=== PATIENT | male | born 1995 | race Caucasian/White ===

== ENCOUNTER 2016-10-01 10:27 | Emergency (ER) | payer OTHER ==
[2016-10-01 10:43] VITALS: BP 142/97
[2016-10-01] MEDS ORDERED: Ondansetron INJ* 2 MG/ML VIAL IM ONE (11:05)
--- NOTE | 2016-10-01 11:08 | UC ---
Abdominal Pain Male HPI - History of Current Complaint Chief Complaint: UCGI Stated Complaint: VOMITING BLOOD/DIARRHEA Time Seen by Provider: 10/01/16 11:01 Hx Obtained From: Patient Onset/Duration: Sudden Onset - at 0845 with diarrhea then vomiting x 3 or 4. Some streaks of blood after a really hard episode., Lasting Hours - 2, Still Present Severity Initially: Severe Severity Currently: Severe Location: Other - at the throat from the vomiting Radiates: No Character: Sharp Aggravating Factor(s):: Movement - just swollowing. Alleviating Factor(s): Nothing Associated Signs And Symptoms: Positive: Vomiting, Diarrhea - Allergies/Home Medications Allergies/Adverse Reactions: Allergies Allergy/AdvReac Type Severity Reaction Status Date / Time No Known Allergies Allergy Verified 10/01/16 10:44 PMH/Surg Hx/FS Hx/Imm Hx Previously Healthy: Yes Cardiovascular History Of: Denies: Hypertension Respiratory History Of: Denies: Asthma - Surgical History Surgical History: None - Family History Known Family History: Negative: Cardiac Disease, Hypertension, Diabetes - Social History Occupation: Unemployed Lives: Alone - with Girlfriend Alcohol Use: Occasionally Alcohol Amount: less than once a month Substance Use Type: None Smoking Status (MU): Never Smoked Tobacco - Immunization History Most Recent Tetanus Shot: unknown Review of Systems Constitutional: Chills Gastrointestinal: Vomiting, Diarrhea All Other Systems Reviewed And Are Negative: Yes Physical Exam Triage Information Reviewed: Yes Appearance: No Pain Distress, Ill-Appearing, Obese Vital Signs: Initial Vital Signs Temp 98.8 F 10/01/16 10:39 Pulse 113 10/01/16 10:39 Resp 16 10/01/16 10:39 BP 142/97 10/01/16 10:39 Pulse Ox 95 10/01/16 10:39 Vital Signs Reviewed: Yes Eyes: Positive: Conjunctiva Clear ENT: Positive: Pharynx normal - moist mucus membranes., TMs normal Neck exam: Normal Respiratory Exam: Normal Cardiovascular Exam: Normal Abdomen Description: Positive: Nontender, No Organomegaly, Soft Bowel Sounds: Positive: Hyperactive Musculoskeletal Exam: Normal Neurological Exam: Normal Psychological Exam: Normal Skin Exam: Normal Re-Evaluation - Re-Evaluation First Eval Re-Evaluation Time: 12:15 Change: Improved - able to keep water down. Abd Pain Male Course/Dx - Differential Dx/Clinical Impression Differential Diagnosis/HQI/PQRI: Hepatitis, Pancreatitis Provider Diagnoses: Viral enteritis Discharge - Discharge Plan Condition: Stable Disposition: HOME Prescriptions: Ondansetron ODT TAB* [Zofran 4 MG Odt TAB*] 4 mg PO Q6H PRN #14 tab.odt PRN Reason: Nausea/Vomiting Patient Education Materials: Gastroenteritis (ED), Ondansetron (By mouth) Additional Instructions: You can use imodium/ loperamide if you don't have blood or mucus in the stool.
[2016-10-01] MEDS ORDERED: Ondansetron ODT TAB* 4 MG ONE (11:09)
== END 2016-10-01 12:28 | disposition home or self-care (01) ==
LOC: UCCORT 10:27
DX: A08.4 Viral intestinal infection, unspecified (principal); E66.9 Obesity, unspecified
CPT/HCPCS: 96372; 99202; G0463; J2405

== ENCOUNTER 2017-12-16 11:27 | Emergency (ER) | payer OTHER ==
[2017-12-16 12:01] VITALS: BP 147/86
--- NOTE | 2017-12-16 12:35 | UC ---
Headache HPI - HPI Summary HPI Summary: pt states " I had a bad day" on monday so he partied with 2 friends. he consumed 2 shots of rum, 1.5 shots of a "moonshine" type alcohol that was mixed with a 1 tsp marijuanna tincture. shortly after, he felt not well with n/v. states got to the bathroom. next, found himself on the fllor by the toilet but uncertain how he got there.. nikita, still feeling "super dizzy", describes as off balance plus fatigued and not well like a handover. still dizzy as well. here today because of ongoing "super dizzy" which he tx with dramamine otc( helped a little), nausea and admits to SNYDER(points to occipital area) plus vague sense of visual disturbance. denies fever, changes in speech, neck/back pain, known head injury plus numb/weak extremities. no FMH intracranial bleeds. symptoms are a little worse with movement, a little better with rest but never resole including being dizzy. - History Of Current Complaint Hx Obtained From: Patient Onset/Duration: Gradual Onset Pain Intensity: 4 Associated Signs And Symptoms: Positive: Dizziness, Nausea, Vomiting, Visual Changes. Negative: Neck Pain, Neck Stiffness, Decreased LOC - Risk Factors SAH Risk Factors: Hypertension Meningitis Risk Factors: Negative SDH Risk Factors: Male, Recent Trauma - ? Temporal Arteritis Risk Factors: Negative <Cordelia Irving - Last Filed: 12/16/17 12:57> <Marylin Wilkes - Last Filed: 12/16/17 13:25> - History Of Current Complaint Chief Complaint: UCDizziness Stated Complaint: DIZZINESS X 3 DAYS Time Seen by Provider: 12/16/17 12:25 - Allergies/Home Medications Allergies/Adverse Reactions: Allergies Allergy/AdvReac Type Severity Reaction Status Date / Time No Known Allergies Allergy Verified 12/16/17 12:02 Home Medications: Home Medications Ibuprofen TAB* [Motrin TAB* 400 MG] 400 mg PO Q12H PRN 12/16/17 [History Confirmed 12/16/17] Meclizine TAB* [Antivert 12.5 TAB*] 25 mg PO ONCE PRN 12/16/17 [History Confirmed 12/16/17] PMH/Surg Hx/FS Hx/Imm Hx Previously Healthy: Yes - Surgical History Surgical History: None - Family History Known Family History: Negative: Cardiac Disease, Hypertension, Diabetes - Social History Occupation: Unemployed Lives: With Family Alcohol Use: Occasionally Alcohol Amount: 2-3 drinks per month Substance Use Type: Marijuana Substance Use Comment - Amount & Last Used: 12/13/17 Smoking Status (MU): Former Smoker - Immunization History Most Recent Tetanus Shot: unknown Vaccination Up to Date: Yes <Cordelia Irving - Last Filed: 12/16/17 12:57> Review of Systems Constitutional: Fatigue Skin: Negative Eyes: Blurred Vision ENT: Negative Respiratory: Negative Cardiovascular: Negative Gastrointestinal: Vomiting, Nausea Genitourinary: Negative Motor: Negative Neurovascular: Negative Musculoskeletal: Negative Neurological: Headache, Other - dizzy Psychological: Negative Is Patient Immunocompromised?: No All Other Systems Reviewed And Are Negative: Yes <Cordelia Irving - Last Filed: 12/16/17 12:57> Physical Exam Triage Information Reviewed: Yes Appearance: Well-Appearing Vital Signs: Initial Vital Signs Temp 98.2 F 12/16/17 11:43 Pulse 79 12/16/17 11:43 Resp 18 12/16/17 11:43 BP 147/86 12/16/17 11:43 Pulse Ox 99 12/16/17 11:43 Vital Signs Reviewed: Yes Eyes: Positive: Conjunctiva Clear, Other: - PERRL, EOMI, NO NYSTAGMUS ENT: Positive: Pharynx normal, TMs normal. Negative: Nasal congestion, Nasal drainage Neck: Positive: Supple, Nontender, No Lymphadenopathy, Other: - no bruits. c- spine non tender.. Negative: Nuchal Rigidity, Tenderness @ Respiratory: Positive: Lungs clear, Normal breath sounds Cardiovascular: Positive: RRR, No Murmur Abdomen Description: Positive: Nontender, No Organomegaly, Soft. Negative: Distended, Guarding Bowel Sounds: Positive: Present Musculoskeletal: Positive: Other: - Head and back without deformity or tenderness. Neurological: Positive: Other: - A&Ox3, CN 2-12 grossly intact. neg rhomberg and pronator drift. 5/5 strength and 2+ reflexes x4. staedy, normal gait Psychological: Positive: Age Appropriate Behavior Skin Exam: Normal <Cordelia Irving - Last Filed: 12/16/17 12:57> Vital Signs: Initial Vital Signs Temp 98.2 F 12/16/17 11:43 Pulse 79 12/16/17 11:43 Resp 18 12/16/17 11:43 BP 147/86 12/16/17 11:43 Pulse Ox 99 12/16/17 11:43 <Marylin Wilkes - Last Filed: 12/16/17 13:25> Headache Course/Dx - Course Course Of Treatment: ems advised, pt declined despite risk of mva, delay of care , worsening, disability and . he is A&Ox3, able to make decisons thus I must respect the ems refusal. pt's girlfried driving him to [facility](pt choice). [facility] called, report given to Dr Tim Baltazar. advised of hx, pe and intractable dizzy, snyder, nausea and coming via car. No hx htn, cause pending. - Differential Dx/Diagnosis Differential Diagnosis/HQI/PQRI: Epidural Hematoma, Subdural Hematoma, Subarachnoid Hemorrhage, Other - concussion, post alcohol/drug side effects. Provider Diagnoses: dizzy, occipital Snyder, nausea, BP 147/86 <Cordelia Irving - Last Filed: 12/16/17 12:57> Discharge - Sign-Out/Discharge Documenting (check all that apply): Discharge/Admit/Transfer - Billing Disposition and Condition Condition: STABLE Disposition: DON <Cordelia Irving - Last Filed: 12/16/17 12:57> - Billing Disposition and Condition Condition: STABLE Disposition: EMTCONCEPCION <Marylin Wilkes - Last Filed: 12/16/17 13:25> - Discharge Plan Condition: Stable Disposition: TRANS HIGHER LVL OF CARE FAC Referrals: No Primary Care Phys,NOPCP [Primary Care Provider] - Additional Instructions: LEAVE HERE AND HAVE YOUR GIRLFRIEND DRIVE YOU DIRECTLY TO THE [facility] EMERGENCY ROOM DISCUSSED AND AGREED UPON. Attestation Statement User Type: Provider - I was available for consult. This patient was seen by the [facility]. The patient was not presented to, seen by, or examined by me. -Papa <Marylin Wilkes - Last Filed: 12/16/17 13:25>
== END 2017-12-16 12:56 | disposition short-term general hospital (02) ==
LOC: UCCORT 11:27
DX: R42 Dizziness and giddiness (principal); R51 Headache; R11.2 Nausea with vomiting, unspecified; R03.0 Elevated blood-pressure reading, without diagnosis of hypertension; H53.8 Other visual disturbances
CPT/HCPCS: 99212; G0463

== ENCOUNTER 2017-12-16 13:49 | Emergency (ER) | payer OTHER ==
--- NOTE | 2017-12-16 16:56 | RAD ---
Indication: Fall following alcohol binge. Vomiting. Comparison: No relevant prior exams available on the [facility] PACS for comparison. Technique: Noncontrast CT vertex of skull through foramen magnum. Report: The sulci, ventricles, and basal cisterns are normal for age. Foy matter white matter differentiation is preserved without evidence for edema. No intra or extra axial hemorrhage, mass, or fluid collection detected. Unremarkable visualized orbital contents. Unremarkable calvarium and skull base. Unremarkable scalp. The visualized paranasal sinuses and mastoid air spaces are clear. IMPRESSION: No CT evidence for traumatic brain injury or acute intracranial process.
[2017-12-16 17:30] VITALS: BP 123/84
--- NOTE | 2017-12-16 21:28 | ED ---
Brian Diop Natalie, scribed for Kole Baltazar MD on 12/16/17 at 1621 . Dizziness - HPI Summary HPI Summary: The patient is a 22 y/o M presenting to the ED c/o dizziness for three days. The pt was drinking a few nights ago when he drank too much, vomited three times , and fell to the ground but doesn't remember it. The morning after, 12/14/17, he felt dizzy and nauseous, and he vomited again. He went to [facility] yesterday and picked up anti-dizziness medication, which has helped to some relief with the dizziness persisting into today. The pain is alleviated by lying down. Pt additionally c/o pain in occipital head and neck with his head feeling heavier than normal. He went to [facility] today, who sent him here for imaging. - History Of Current Complaint Chief Complaint: EDDizziness Stated Complaint: TRANSFER FROM /DIZZINESS Time Seen by Provider: 12/16/17 16:04 Hx Obtained From: Patient Onset/Duration: Still Present, Suddenly - Allergies/Home Medications Allergies/Adverse Reactions: Allergies Allergy/AdvReac Type Severity Reaction Status Date / Time No Known Allergies Allergy Verified 12/16/17 12:02 PMH/Surg Hx/FS Hx/Imm Hx Cardiovascular History: Denies: Hx Hypertension Respiratory History: Denies: Hx Asthma EENT History: Denies: Hx Deafness Infectious Disease History: No Infectious Disease History: Denies: Traveled Outside the [place] in Last 30 Days - Family History Known Family History: Negative: Cardiac Disease, Hypertension, Diabetes - Social History Alcohol Use: Occasionally Alcohol Amount: 2-3 drinks per month Substance Use Type: Reports: Marijuana Substance Use Comment - Amount & Last Used: 12/13/17 Smoking Status (MU): Former Smoker Review of Systems Positive: Other - dizziness Positive: Vomiting, Nausea Positive: Other - neck pain Positive: Headache - occipital All Other Systems Reviewed And Are Negative: Yes Physical Exam - Summary Physical Exam Summary: Appearance: The patient is well-nourished in no acute distress and in no acute pain. Skin: The skin is warm and dry and skin color reflects adequate perfusion. HEENT: The head is normocephalic and atraumatic. The pupils are equal and reactive.There is nystagmus in both directions which fatigues. The conjunctivae are clear and without drainage. Nares are patent and without drainage. Mouth reveals moist mucous membranes and the throat is without erythema and exudate. The external ears are intact. The ear canals are patent and without drainage. The tympanic membranes are intact. Neck: the neck is supple with full range of motion and non-tender. There are no carotid bruits. There is no neck vein distension. Respiratory: Chest is non-tender. Lungs are clear to auscultation and breath sounds are symmetrical and equal. Cardiovascular: Heart is regular rate and rhythm. There is no murmur or rub auscultated. There is no peripheral edema and pulses are symmetrical and equal. Abdomen: The abdomen is soft and non-tender. There are normal bowel sounds heard in all four quadrants and there is no organomegaly palpated. Musculoskeletal: There is no back tenderness noted. Extremities are non-tender with full range of motion. There is good capillary refill. There is no peripheral edema or calf tenderness elicited. Neurological: Patient is alert and oriented to person, place and time. The patient has symmetrical motor strength in all four extremities. Cranial nerves are grossly intact. Deep tendon reflexes are symmetrical and equal in all four extremities. Psychiatric: The patient has an appropriate affect and does not exhibit any anxiety or depression. Triage Information Reviewed: Yes Vital Signs On Initial Exam: Initial Vitals Temp Pulse Resp BP Pulse Ox 97.9 F 85 16 140/78 98 12/16/17 14:12 12/16/17 14:12 12/16/17 14:12 12/16/17 14:12 12/16/17 14:12 Vital Signs Reviewed: Yes Diagnostics - Vital Signs Vital Signs Temp Pulse Resp BP Pulse Ox 12/16/17 15:54 97.8 F 79 16 153/100 97 12/16/17 14:12 97.9 F 85 16 140/78 98 - Laboratory Lab Statement: Any lab studies that have been ordered have been reviewed, and results considered in the medical decision making process. - CT Brain CT CT Interpretation: No Acute Changes - No CT evidence for traumatic brain injury or acute intracranial process. ED physician has reviewed this report. CT Interpretation Completed By: Radiologist Re-Evaluation - Re-Evaluation First Eval Re-Evaluation Time: 17:22 Change: Improved Comment: I spoke with the patient about his imaging results and discharge home. Dizzy Course/Dx - Course Course Of Treatment: Mr. Ellis was sent to the emergency department from [facility]. He hit his head a couple days ago when he was drunk and has been dizzy since then with a mild headache. His exam was unremarkable and CT scan was obtained which showed no acute pathology. This is likely mild concussive syndrome - Diagnoses Provider Diagnoses: Head injury Discharge - Sign-Out/Discharge Documenting (check all that apply): Discharge/Admit/Transfer - Discharge Plan Condition: Stable Disposition: HOME Patient Education Materials: Head Injury (ED) Referrals: [facility] REFERR[facility] [Outside] - 3 Days Additional Instructions: Follow up with your primary care provider in 2-3 days. Return to the emergency department for any new or worsening symptoms. - Billing Disposition and Condition Condition: STABLE Disposition: HOME The documentation as recorded by the Brian robertson Natalie accurately reflects the service I personally performed and the decisions made by me, Kole Baltazar MD.
== END 2017-12-16 17:32 | disposition home or self-care (01) ==
LOC: ED 13:49
DX: S09.90XA Unspecified injury of head, initial encounter (principal); Z87.891 Personal history of nicotine dependence; W22.8XXA Striking against or struck by other objects, initial encounter; Y92.9 Unspecified place or not applicable
CPT/HCPCS: 70450; 99283

== ENCOUNTER 2019-04-12 08:04 | Emergency (ER) | payer OTHER ==
[2019-04-12] MEDS ORDERED: Ondansetron INJ* 2 MG/ML VIAL IV ONE (08:17)
[2019-04-12 08:37] LABS: ABS Eosinophils 0.1 10^3/ul (0-0.6); ABS Lymphocytes 1.8 10^3/ul (1.0-4.8); ABS Monocytes 0.5 10^3/ul (0-0.8); ABS Neutrophils 3.5 10^3/ul (1.5-7.7); Eosinophil % 1.1 %; Hematocrit 40 % (42-52); Hemoglobin 12.8 g/dL (14.0-18.0); Mean Corpuscular HGB Conc 32 g/dL (31-36); Mean Corpuscular Hemoglobin 21 pg (27-31); Mean Corpuscular Volume 65 fL (80-94); Mean Platelet Volume 10.8 fL (7.4-10.4); Platelet Count 162 10^3/uL (150-450); Red Blood Count 6.13 10^6 /uL (4.18-5.48); Red Cell Distribution Width 15 % (10-15); White Blood Count 5.9 10^3/uL (3.5-10.8)
[2019-04-12 08:42] LABS: INR 0.96 (0.82-1.09)
[2019-04-12 08:53] LABS: Albumin 4.6 g/dL (3.2-5.2); Albumin/Globulin Ratio 2.1 (1-3); BUN/Creatinine Ratio 12.8 (8-20); C Reactive Protein 4.09 mg/L (<8.01); Calcium 8.9 mg/dL (8.6-10.3); EGFR African American 149.3 (>60); EGFR Non-African American 123.3 (>60); Globulin 2.2 g/dL (2-4); Magnesium 2.1 mg/dL (1.9-2.7); Potassium 3.8 mmol/L (3.5-5.0); Total Bilirubin 0.8 mg/dL (0.2-1.0); Total Protein 6.8 g/dL (6.4-8.9)
[2019-04-12] MEDS ORDERED: NS 0.9% 1000 ML** 1,000 ML IV ONE (09:23)
[2019-04-12 09:39] LABS: Corrected Retic Count 1.4 % (0.5-1.5); Hematocrit for Retic CNT 40 % (42-52); Immature Retic Fraction 0.53; RBC Retic Count 6.22 10^6/uL (4.18-5.48)
[2019-04-12 10:09] LABS: Urine Appearance Clear; Urine Bilirubin Negative (Negative); Urine Blood Negative (Negative); Urine Color Yellow; Urine Glucose Negative (Negative); Urine Ketones Negative (Negative); Urine Nitrite Negative (Negative); Urine Protein Negative (Negative); Urine Specific Gravity 1.012 (1.010-1.030); Urine Urobilinogen Negative (Negative)
--- NOTE | 2019-04-12 11:01 | ED ---
Abdominal Pain/Male - HPI Summary HPI Summary: This patient is a 24-year-old male who presents to the ED with left-sided lower abdominal pain present times several weeks to months which is been intermittent and rated a 1/10 to a 3/10. He is also endorsing extreme fatigue. He states his father has beta thalassemia as well as his sister, however he was never tested. He was diagnosed with mono several weeks ago and had known splenomegaly at that time. He is endorsing a recent diagnosis of anemia and had 2 episodes of nausea vomiting with blood streaking this morning. Denies any symptoms currently. Denies any nausea or vomiting, however does continue to endorse some fatigue. - History of Current Complaint Chief Complaint: EDGeneral Stated Complaint: VOMITING BLOOD PER PT Time Seen by Provider: 04/12/19 08:16 Hx Obtained From: Patient Onset/Duration: Sudden Onset Timing: Constant Severity Initially: Moderate Severity Currently: Moderate Pain Intensity: 1 Pain Scale Used: 0-10 Numeric Location: Discrete At: LLQ Radiates: No Character: Sharp, Dull, Cramping Aggravating Factor(s): Nothing Alleviating Factor(s): Nothing Associated Signs And Symptoms: Positive: Vomiting - Risk Factors Testicular Torsion: Negative Cardiac Risk Factors: Negative - Allergies/Home Medications Allergies/Adverse Reactions: Allergies Allergy/AdvReac Type Severity Reaction Status Date / Time No Known Allergies Allergy Verified 04/12/19 08:24 Home Medications: Home Medications Multivitamin 1 tab PO DAILY 04/12/19 [History Confirmed 04/12/19] Omeprazole 20 mg PO DAILY 04/12/19 [History Confirmed 04/12/19] PMH/Surg Hx/FS Hx/Imm Hx Previously Healthy: Yes Cardiovascular History: Denies: Hx Hypertension Respiratory History: Denies: Hx Asthma Sensory History: Denies: Hx Deafness - Immunization History Hx Pertussis Vaccination: No Immunizations Up to Date: Yes Infectious Disease History: No Infectious Disease History: Denies: Traveled Outside the [place] in Last 30 Days - Family History Known Family History: Negative: Cardiac Disease, Hypertension, Diabetes - Social History Occupation: Employed Full-time Lives: With Family Alcohol Use: None Alcohol Amount: 2-3 drinks per month Hx Substance Use: Yes Substance Use Type: Reports: Marijuana Substance Use Comment - Amount & Last Used: 12/13/17 Hx Tobacco Use: Yes Smoking Status (MU): Former Smoker Review of Systems Positive: Fatigue. Negative: Fever, Chills, Skin Diaphoresis Negative: Palpitations, Chest Pain Negative: Shortness Of Breath, Cough Positive: Abdominal Pain - left lower quadrant pain rated 1/10 Genitourinary: Negative Positive: no symptoms reported, see HPI Negative: Arthralgia, Myalgia Skin: Negative Psychological: Normal All Other Systems Reviewed And Are Negative: Yes Physical Exam Triage Information Reviewed: Yes Vital Signs On Initial Exam: Initial Vitals Temp Pulse Resp BP Pulse Ox 98.3 F 73 18 150/95 99 04/12/19 08:05 04/12/19 08:05 04/12/19 08:05 04/12/19 08:05 04/12/19 08:05 Vital Signs Reviewed: Yes Appearance: Positive: Well-Appearing, Well-Nourished Skin: Positive: Warm, Skin Color Reflects Adequate Perfusion Head/Face: Positive: Normal Head/Face Inspection Eyes: Positive: EOMI, BRADY, Conjunctiva Clear Neck: Positive: Supple, No Lymphadenopathy Respiratory/Lung Sounds: Positive: Clear to Auscultation, Breath Sounds Present Cardiovascular: Positive: RRR, Pulses are Symmetrical in both Upper and Lower Extremities Abdomen Description: Positive: Nontender, Soft Musculoskeletal: Positive: Normal, Strength/ROM Intact Neurological: Positive: Speech Normal Psychiatric: Positive: Normal, Affect/Mood Appropriate AVPU Assessment: Alert Diagnostics - Vital Signs Vital Signs Temp Pulse Resp BP Pulse Ox 04/12/19 08:34 74 97 04/12/19 08:05 98.3 F 73 18 150/95 99 - Laboratory Lab Results: Lab Results 04/12/19 04/12/19 04/12/19 Range/Units 08:28 08:28 08:28 WBC 5.9 (3.5-10.8) 10^3/uL RBC 6.13 H (4.18-5.48) 10^6 /uL RBC (Retic) 6.22 H (4.18-5.48) 10^6/uL Hgb 12.8 L (14.0-18.0) g/dL Hct 40 L (42-52) % HCT (Retic) 40 L (42-52) % MCV 65 L (80-94) fL MCH 21 L (27-31) pg MCHC 32 (31-36) g/dL RDW 15 (10-15) % Plt Count 162 (150-450) 10^3/uL MPV 10.8 H (7.4-10.4) fL Neut % (Auto) 60.1 % Lymph % (Auto) 30.0 % Simpson % (Auto) 8.0 % Eos % (Auto) 1.1 % Baso % (Auto) 0.8 % Absolute Neuts (auto) 3.5 (1.5-7.7) 10^3/ul Absolute Lymphs (auto) 1.8 (1.0-4.8) 10^3/ul Absolute Monos (auto) 0.5 (0-0.8) 10^3/ul Absolute Eos (auto) 0.1 (0-0.6) 10^3/ul Absolute Basos (auto) 0.0 (0-0.2) 10^3/ul Absolute Nucleated RBC 0.0 10^3/ul Nucleated RBC % 0.0 Retic Count, Calc 1.6 H (0.5-1.5) % Corrected Retic Count 1.4 (0.5-1.5) % Retic Shift Factor 1.0 Retic Production Index 1.40 Immature Retic Fraction 0.53 Mean Retic Volume 91.0 INR (Anticoag Therapy) 0.96 (0.82-1.09) Sodium 142 (135-145) mmol/L Potassium 3.8 (3.5-5.0) mmol/L Chloride 106 (101-111) mmol/L Carbon Dioxide 32 (22-32) mmol/L Anion Gap 4 (2-11) mmol/L BUN 10 (6-24) mg/dL Creatinine 0.78 (0.67-1.17) mg/dL Est GFR ( Amer) 149.3 (>60) Est GFR (Non-Af Amer) 123.3 (>60) BUN/Creatinine Ratio 12.8 (8-20) Glucose 106 H (70-100) mg/dL Lactic Acid (0.5-2.0) mmol/L Calcium 8.9 (8.6-10.3) mg/dL Magnesium 2.1 (1.9-2.7) mg/dL Iron 65 (50-212) ug/dL Total Bilirubin 0.80 (0.2-1.0) mg/dL AST 26 (13-39) U/L ALT 37 (7-52) U/L Alkaline Phosphatase 64 (34-104) U/L C-Reactive Protein 4.09 (<8.01) mg/L Total Protein 6.8 (6.4-8.9) g/dL Albumin 4.6 (3.2-5.2) g/dL Globulin 2.2 (2-4) g/dL Albumin/Globulin Ratio 2.1 (1-3) Lipase 51 (11.0-82.0) U/L Urine Color Urine Appearance Urine pH (5-9) Ur Specific [place] (1.010-1.030) Urine Protein (Negative) Urine Ketones (Negative) Urine Blood (Negative) Urine Nitrate (Negative) Urine Bilirubin (Negative) Urine Urobilinogen (Negative) Ur Leukocyte Esterase (Negative) Urine Glucose (Negative) 04/12/19 04/12/19 Range/Units 08:28 09:53 WBC (3.5-10.8) 10^3/uL RBC (4.18-5.48) 10^6 /uL RBC (Retic) (4.18-5.48) 10^6/uL Hgb (14.0-18.0) g/dL Hct (42-52) % HCT (Retic) (42-52) % MCV (80-94) fL MCH (27-31) pg MCHC (31-36) g/dL RDW (10-15) % Plt Count (150-450) 10^3/uL MPV (7.4-10.4) fL Neut % (Auto) % Lymph % (Auto) % Simpson % (Auto) % Eos % (Auto) % Baso % (Auto) % Absolute Neuts (auto) (1.5-7.7) 10^3/ul Absolute Lymphs (auto) (1.0-4.8) 10^3/ul Absolute Monos (auto) (0-0.8) 10^3/ul Absolute Eos (auto) (0-0.6) 10^3/ul Absolute Basos (auto) (0-0.2) 10^3/ul Absolute Nucleated RBC 10^3/ul Nucleated RBC % Retic Count, Calc (0.5-1.5) % Corrected Retic Count (0.5-1.5) % Retic Shift Factor Retic Production Index Immature Retic Fraction Mean Retic Volume INR (Anticoag Therapy) (0.82-1.09) Sodium (135-145) mmol/L Potassium (3.5-5.0) mmol/L Chloride (101-111) mmol/L Carbon Dioxide (22-32) mmol/L Anion Gap (2-11) mmol/L BUN (6-24) mg/dL Creatinine (0.67-1.17) mg/dL Est GFR ( Amer) (>60) Est GFR (Non-Af Amer) (>60) BUN/Creatinine Ratio (8-20) Glucose (70-100) mg/dL Lactic Acid 1.4 (0.5-2.0) mmol/L Calcium (8.6-10.3) mg/dL Magnesium (1.9-2.7) mg/dL Iron (50-212) ug/dL Total Bilirubin (0.2-1.0) mg/dL AST (13-39) U/L ALT (7-52) U/L Alkaline Phosphatase (34-104) U/L C-Reactive Protein (<8.01) mg/L Total Protein (6.4-8.9) g/dL Albumin (3.2-5.2) g/dL Globulin (2-4) g/dL Albumin/Globulin Ratio (1-3) Lipase (11.0-82.0) U/L Urine Color Yellow Urine Appearance Clear Urine pH 9.0 (5-9) Ur Specific [place] 1.012 (1.010-1.030) Urine Protein Negative (Negative) Urine Ketones Negative (Negative) Urine Blood Negative (Negative) Urine Nitrate Negative (Negative) Urine Bilirubin Negative (Negative) Urine Urobilinogen Negative (Negative) Ur Leukocyte Esterase Negative (Negative) Urine Glucose Negative (Negative) Result Diagrams: 04/12/19 08:28 04/12/19 08:28 Lab Statement: Any lab studies that have been ordered have been reviewed, and results considered in the medical decision making process. Abdominal Pain Male Course/Dx - Course Course Of Treatment: During his course of treatment, the patient is evaluated for 2 episodes of blood-streaked vomit this morning. He has been very fatigued with some left lower abdominal pain over the course of the past 6 months. He is endorsing this pain at a 1/10 at this time. Denies any diarrhea or constipation. Denies any nausea or vomiting currently.Labs obtained which show a microcytic anemia with an increased RBC count. He also has had symptoms of hemolysis such as splenomegaly as well as scleral icterus. He does not have scleral icterus at this time. Other labs WNL. Iron 45 and is WNL. He will follow-up with hematology. He denies any symptoms currently so is a safe discharge at this time. Physical exam is benign and he is endorsing no pain. He will be given nausea medication for at home and will return if he develops any worsening or changing symptoms. - Diagnoses Differential Diagnosis/HQI/PQRI: Other - Hematemesis, aline roman tear, beta thal Provider Diagnoses: Abdominal pain, Abnormal RBC indices Discharge ED - Sign-Out/Discharge Documenting (check all that apply): Patient Departure Patient Received Moderate/Deep Sedation with Procedure: No - Discharge Plan Condition: Stable Disposition: HOME Prescriptions: Ondansetron ODT TAB* [Zofran 4 MG Odt TAB*] 4 mg PO Q6H PRN #12 tab.odt MDD 4 PRN Reason: Nausea Patient Education Materials: Aline-Roman Syndrome (ED) Referrals: Blanca Templeton, [facility] [Primary Care Provider] - Additional Instructions: Zofran as needed for discomfort Ibuprofen 600mg three times daily as needed for pain - do not exceed 3-4 days without taking a break Drink plenty of fluids and get rest Follow up with telemarketing fundraiser - Billing Disposition and Condition Condition: STABLE Disposition: Home
[2019-04-12 11:09] VITALS: BP 144/95
== END 2019-04-12 11:05 | disposition home or self-care (01) ==
LOC: ED 08:04
DX: R10.9 Unspecified abdominal pain (principal); R71.8 Other abnormality of red blood cells; Z79.899 Other long term (current) drug therapy; Z87.891 Personal history of nicotine dependence
CPT/HCPCS: 36415; 80053; 81003; 83540; 83605; 83690; 83735; 85025; 85045; 85610; 86140; 96361; 96374; 99284; J2405